=== PATIENT | female | born 1975 | race Asian ===

== ENCOUNTER 2016-12-04 15:43 | Emergency (ER) | payer SELFPAY ==
[~2016-12-04] VITALS: Ht 152.4 cm; Wt 53.0 kg
[2016-12-04 15:54] VITALS: BP 108/65; PULSE 69; RESP 17; TEMP 98.2; O2SAT 99
--- NOTE | 2016-12-04 16:05 | PD ---
HPI Chief Complaint: Alcohol/Drug Intoxication Time Seen by Provider: 16:03 Travel History International Travel<30 days: No Contact w/Intl Traveler<30days: No Traveled to known affect area: No History of Present Illness HPI 41-year-old female presents to the emergency Department under [place] act by local police for intoxication. The patient states that her had a fall while and she has been drinking. She is unable to tell me how much she has had to drink today, but states it is "a lot". She chews tobacco and denies any illicit drug use. She denies any suicidal or homicidal ideations. She denies any chronic medical problems or take any prescribed medications. She denies . She denies any chest pain or shortness breath. No abdominal pain. No vomiting. No fevers or chills. No other complaints. [facility] Social History Alcohol Use: Yes Tobacco Use: Yes Substance Use: No Allergies-Medications (Allergen,Severity, Reaction): Coded Allergies: No Known Allergies (Unverified , 12/04/16) Review of Systems Except as stated in HPI: all other systems reviewed are Neg Physical Exam Narrative GENERAL: Well-nourished, well-developed female patient, afebrile. He is intoxicated. She has strong smell alcohol on her breath. SKIN: Focused skin assessment warm/dry. HEAD: Normocephalic. Atraumatic. EYES: No scleral icterus. No injection or drainage. NECK: Supple, trachea midline. No JVD or lymphadenopathy. CARDIOVASCULAR: Regular rate and rhythm without murmurs, gallops, or rubs. RESPIRATORY: Breath sounds equal bilaterally. No accessory muscle use. Lungs sounds are clear to auscultation. GASTROINTESTINAL: Abdomen soft, non-tender, nondistended. MUSCULOSKELETAL: No cyanosis, or edema. BACK: Nontender without obvious deformity. No CVA tenderness. Data Data Last Documented VS Vital Signs Date Time Temp Pulse Resp B/P Pulse Ox O2 Delivery O2 Flow Rate FiO2 12/04/16 15:56 99 Room Air 12/04/16 15:54 98.2 69 17 108/65 Orders Basic Metabolic Panel (Bmp) (12/04/16 16:01) Alcohol (Ethanol) (12/04/16 16:01) Ed Urine Pregnancytest Poc (12/04/16 16:01) Diet Regular Basic (12/04/16 Lunch) Labs Laboratory Tests Test 12/04/16 16:00 Sodium Level 140 MEQ/L Potassium Level 3.4 MEQ/L Chloride Level 106 MEQ/L Carbon Dioxide Level 24.9 MEQ/L Anion Gap 9 MEQ/L Blood Urea Nitrogen 7 MG/DL Creatinine 0.68 MG/DL Estimat Glomerular Filtration 94 ML/MIN Rate Random Glucose 84 MG/DL Calcium Level 8.5 MG/DL Ethyl Alcohol Level 291 MG/DL MDM Medical Decision Making Medical Screen Exam Complete: Yes Emergency Medical Condition: Yes Medical Record Reviewed: Yes Differential Diagnosis Alcohol intoxication versus medical clearance vs. electrolyte abnormality Narrative Course 41 year old female presents to the emergency department under [place] [employer] for alcohol intoxication. BMP and alcohol level are ordered and pending. BMP shows no acute abnormality. Alcohol level is 291. UPT is negative. Patient will be allowed to rest in the emergency department until clinically sober or until a ride can be found. Diagnosis Primary Impression: Alcohol intoxication Qualified Code: F10.920 - Alcohol intoxication, uncomplicated Referrals: Primary Care Physician call for appointment Patient Instructions: Alcohol Intoxication (ED), General Instructions Additional Instructions: Please drink alcohol in moderation or not at all. Follow-up with your primary care physician. Return to the emergency department for any acute worsening of symptoms. Med/Other Pt SpecificInfo: No Change to Meds Disposition: 01 DISCHARGE HOME Condition: Stable Crystal Hernadez December 04, 2016 16:05
[2016-12-04 17:07] LABS: BICARBONATE 24.9 MEQ/L (21.0-32.0); POTASSIUM 3.4 MEQ/L (3.5-5.1)
== END 2016-12-04 19:47 | disposition home or self-care (01) ==
LOC: NEPC 15:43
DX: F10.129 Alcohol abuse with intoxication, unspecified (principal); Z72.0 Tobacco use; Y90.8 Blood alcohol level of 240 mg/100 ml or more
CPT/HCPCS: 80048; 80307; 84703; 99284